=== PATIENT | female | born 1965 | race Caucasian/White ===

== ENCOUNTER → 2017-02-14 | Emergency (ER) | payer SELFPAY ==
[~2017-02-14] MED LIST: IBUPROFEN 600 MG TABLET (FP) PO ONE
[2017-02-14 18:24] VITALS: BMI 25.9
--- NOTE | 2017-02-14 19:44 | PDOC ---
History of Present Illness - General History Source: Patient Exam Limitations: No Limitations - History of Present Illness Initial Comments: 02/14/17 19:55 The patient is a 51 year old female with no significant past medical history who presents to the ED after taking a positive home test. She states she has been experiencing diffuse abdominal pain since yesterday, which prompted her to take the home test. She reports her last menstrual cycle was in December 2016. She assumed she was post menopausal and has not been using protected intercourse. No nausea, vomiting, or diarrhea. No fever or chills. No dysuria or hematuria. No abnormal vaginal bleeding or discharge. PCP- in [place], does not remember name <Chiara Altamirano - Last Filed: 02/14/17 19:55> <Pennie Teague - Last Filed: 02/14/17 22:03> - General Chief Complaint: Pain Stated Complaint: ABD PAIN Time Seen by Provider: 02/14/17 19:43 Past History <Chiara Altamirano - Last Filed: 02/14/17 19:55> - Past Medical History Other medical history: none - Psycho/Social/Smoking Cessation Hx Suicidal Ideation: No Smoking History: Never smoked Have you smoked in the past 12 months: No Information on smoking cessation initiated: No Hx Alcohol Use: No Drug/Substance Use Hx: No Substance Use Type: None <Pennie Teague - Last Filed: 02/14/17 22:03> - Past Medical History Allergies/Adverse Reactions: Allergies Allergy/AdvReac Type Severity Reaction Status Date / Time No Known Allergies Allergy Verified 02/14/17 18:21 Home Medications: Ambulatory Orders NK [No Known Home Medication] 12/10/15 Review of Systems - Review of Systems Able to Perform ROS?: Yes Comments:: 02/14/17 20:00 GENERAL/CONSTITUTIONAL: No fever or chills. No weakness. HEAD, EYES, EARS, NOSE AND THROAT: No change in vision. No ear pain or discharge. No sore throat CARDIOVASCULAR: No chest pain or shortness of breath. RESPIRATORY: No cough, wheezing, or hemoptysis. GASTROINTESTINAL: +diffuse abdominal pain. No nausea, vomiting, diarrhea or constipation. GENITOURINARY: No dysuria, frequency, or change in urination. MUSCULOSKELETAL: No joint or muscle swelling or pain. No neck or back pain. SKIN: No rash NEUROLOGIC: No headache, vertigo, loss of consciousness, or change in strength/ sensation. ENDOCRINE: No increased thirst. No abnormal weight change. HEMATOLOGIC/LYMPHATIC: No anemia, easy bleeding, or history of blood clots. ALLERGIC/IMMUNOLOGIC: No hives or skin allergy. <Chiara Altamirano - Last Filed: 02/14/17 19:55> *Physical Exam - Vital Signs Last Vital Signs Temp Pulse Resp BP Pulse Ox 97.8 F 72 18 138/96 100 02/14/17 18:21 02/14/17 18:21 02/14/17 18:21 02/14/17 18:21 02/14/17 18:21 - Physical Exam Comments: 02/14/17 20:01 GENERAL: Awake, alert, and fully oriented, in no acute distress HEAD: No signs of trauma EYES: PERRLA, EOMI, sclera anicteric, conjunctiva clear ENT: Auricles normal inspection, hearing grossly normal, nares patent, oropharynx clear without exudates. Moist mucosa NECK: Normal ROM, supple, no lymphadenopathy, JVD, or masses LUNGS: Breath sounds equal, clear to auscultation bilaterally. No wheezes, and no crackles HEART: Regular rate and rhythm, normal S1 and S2, no murmurs, rubs or gallops ABDOMEN: Soft, nontender, normoactive bowel sounds. No guarding, no rebound. No masses EXTREMITIES: Normal range of motion, no edema. No clubbing or cyanosis. No cords, erythema, or tenderness NEUROLOGICAL: Cranial nerves II through XII grossly intact. Normal speech, normal gait SKIN: Warm, Dry, normal turgor, no rashes or lesions noted. <Chiara Altamirano - Last Filed: 02/14/17 19:55> - Vital Signs Last Vital Signs Temp Pulse Resp BP Pulse Ox 97.8 F 72 18 138/96 100 02/14/17 18:21 02/14/17 18:21 02/14/17 18:21 02/14/17 18:21 02/14/17 18:21 <Pennie Teague - Last Filed: 02/14/17 22:03> *DC/Admit/Observation/Transfer - Attestations Scribe Attestion: 02/14/17 20:01 Documentation prepared by Chiara Altamirano, acting as medical director occupational health for Pennie Teague MD. <Chiara Altamirano - Last Filed: 02/14/17 19:55> <Pennie Teague - Last Filed: 02/14/17 22:03> Diagnosis at time of Disposition: Abdominal discomfort - Discharge Dispostion Disposition: HOME Condition at time of disposition: Stable - Patient Instructions Printed Discharge Instructions: DI for Abdominal Pain-Adult Additional Instructions: please return for any worsening symptoms
[2017-02-14 22:50] VITALS: BP 121/85; PULSE 73; TEMP 97.9
== END | disposition home or self-care (01) ==
LOC: JER 18:19
DX: R10.84 Generalized abdominal pain (principal)
CPT/HCPCS: 36415; 84702; 99282-25

== ENCOUNTER 2024-08-04 22:42 | Emergency (ER) | payer OTHER ==
[2024-08-04 22:51] VITALS: BP 131/81; PULSE 76; RESP 20; TEMP 98.7; BMI 30.9
[2024-08-04] MEDS ORDERED: ACETAMINOPHEN INJECTION 100 ML ONE (23:52)
[2024-08-05] MEDS: ACETAMINOPHEN 1000 MG/100 ML BAG IVPB ONE (00:08)
[2024-08-05] MEDS: LACTATED RINGERS SOLUTION 1000 ML INFUS.BAG IV ONE (00:08)
[2024-08-05 00:26] LABS: BASO % 0.9 % (0-2.0); HEMATOCRIT 36.1 % (32.4-45.2); LYMPH % 31.5 % (8-40); MCH 29.2 pg (25.7-33.7); MCHC 33.2 g/dl (32.0-36.0); MEAN CELL VOLUME 87.9 fl (80-96); MEAN PLT VOLUME 6.8 fl (7.5-11.1); MONO % 9.1 % (3.8-10.2); NEUT % 54.5 % (42.8-82.8); PLATELET COUNT 420 10^3/uL (134-434); RBC 4.11 M/mm3 (3.60-5.2); RDW 13.1 % (11.6-15.6); WHITE BLOOD COUNT 8.7 K/mm3 (4.0-10.0)
[2024-08-05 00:32] LABS: POTASSIUM 4.1 mmol/L (3.5-5.1)
[2024-08-05 00:34] LABS: CALCIUM 8.9 mg/dL (8.5-10.1)
[2024-08-05 00:35] LABS: ALBUMIN 3.6 g/dl (3.4-5.0); BLOOD UREA NITROGEN 33.1 mg/dL (7-18)
[2024-08-05 00:36] LABS: INR 0.97 (0.83-1.09); PROTHROMBIN TIME (PATIENT) 11.2 SEC (9.7-13.0)
[2024-08-05 00:37] LABS: EPI CELLS 8 /uL (0-25.1); HYALINE CASTS 2 /uL (0-3.1); URINE APPEARANCE CLEAR; URINE BACTERIA 18 /uL (0-1359); URINE BILIRUBIN NEGATIVE (NEGATIVE); URINE COLOR YELLOW; URINE GLUCOSE (UA) TRACE (NEGATIVE); URINE KETONE TRACE (NEGATIVE); URINE LEUK ESTERASE 1+ (NEGATIVE); URINE NITRITE NEGATIVE (NEGATIVE); URINE PROTEIN TRACE (NEGATIVE); URINE RBC 32 /uL (0-23.9); URINE UROBILINOGEN 0.2 mg/dL (0.2-1.0); URINE WBC 113 /uL (0-25.8)
[2024-08-05 00:38] LABS: ACTIVATED PTT 32.3 SECONDS (25.2-36.5); CREATININE 1.1 mg/dL (0.55-1.3)
[2024-08-05 00:39] LABS: BILIRUBIN,TOTAL 0.2 mg/dL (0.2-1); TOT PROT 7.1 g/dl (6.4-8.2)
== END 2024-08-05 05:40 | disposition home or self-care (01) ==
LOC: JER 22:42
PROC: 3E033NZ Introduction of Analgesics, Hypnotics, Sedatives into Peripheral Vein, Percutaneous Approach (ICD-10-PCS; principal; 2024-08-04)
DX: K57.32 Diverticulitis of large intestine without perforation or abscess without bleeding (principal); U07.1 COVID-19; K62.5 Hemorrhage of anus and rectum; R06.02 Shortness of breath; R05.9 Cough, unspecified; R09.81 Nasal congestion; R42 Dizziness and giddiness; R53.83 Other fatigue; R07.9 Chest pain, unspecified
CPT/HCPCS: 0241U-QW; 36415; 71046-TC-FY; 74177-TC; 80053; 81003; 83605; 84484; 85025; 85610; 85730; 86140; 86850; 86900; 86901; 87086; 99285-25; J0131; Q9967